=== PATIENT | male | born 1990 | race Two or more races ===

== ENCOUNTER 2016-12-30 05:52 | Day surgery (SDC) | payer OTHER ==
[2016-12-30] MEDS ORDERED: ONDANSETRON 4 MG/2ML 2 ML VIAL ONE (06:12)
[2016-12-30] MEDS ORDERED: KETOROLAC TROMETHAMINE 30 MG/ML 1 ML VIAL ONE (06:12)
[2016-12-30] MEDS ORDERED: SODIUM CHLORIDE 0.9% 1,000 ML ONE (06:12)
[2016-12-30] MEDS ORDERED: MORPHINE SULFATE 4 MG/ML SYRINGE ONE ×2 (06:12→06:39)
[2016-12-30 06:22] LABS: ABSOLUTE NEUTROPHIL COUNT 7.7 K/mm3 (1.8-7.7); BASO # 0.1 K/mm3 (0.0-0.2); BASO % 0.7 % (0.2-1.0); EOS # 0.2 (0.0-0.5); EOS % 1.2 % (0.9-2.9); HEMATOCRIT 42.8 % (32.0-52.0); HEMOGLOBIN 13.9 gm/l (14.0-18.0); IMM NEUT # 0.1 K/mm3 (0-0.2); IMM NEUT% 0.4 % (0-1); LYMPH # 4.9 (1.0-4.8); LYMPH % 36.1 % (15-45); MEAN CELL VOLUME 82.5 fl (80.0-94.0); MEAN CORPUSCULAR HEMOGLOBIN 26.8 pg (27.0-31.0); MEAN CORPUSCULAR HGB CONC 32.5 g/dl (33.0-37.0); MEAN PLATELET VOLUME 14.4 fl (7.4-10.4); MONO # 0.7 (0.0-0.8); MONO % 5.1 % (4-12); NEUT % 56.5 % (43-75); PLATELET COUNT 168 K/mm3 (130-400); RED CELL DISTRIBUTION WIDTH 13.6 % (11.5-14.5)
[2016-12-30 06:46] LABS: ALB/GLOB RATIO 1.7 (>1.0); ALBUMIN 4.8 gm/dL (3.5-5.7); CALCIUM 9.9 mg/dL (8.6-10.3)
[2016-12-30] MEDS ORDERED: CEFAZOLIN SODIUM 1 GM IV ONE (07:35)
--- NOTE | 2016-12-30 07:41 | US ---
SCROTUM CONTENTS HISTORY: Severe right testicular pain. COMPARISONS: None. FINDINGS: Ultrasonography of both testicles demonstrates symmetric testicular size. The right testicle measures 5.0 x 3.2 x 3.2 cm. The left testicle measures 4.9 x 2.3 x 2.7 cm. There is no identifiable flow identified within the visualized right testicle or the right epididymis. Normal flow is seen throughout the majority of the left testicle. No masses are visualized. There is a small right-sided hydrocele incidentally seen. IMPRESSION: 1. No significant flow identified within the right testicle and epididymis consistent with a right testicular torsion. 2. A small right-sided hydrocele. The findings were discussed with Dr. Hussein at 0720 hours.
[2016-12-30] MEDS ORDERED: BUPIVACAINE 0.5% (PRES FREE) 30 ML VIAL ONE (07:46)
[2016-12-30] MEDS ORDERED: BACITRACIN 1 APPLIC/500 UNIT PACKET TP ONE (07:46)
[2016-12-30] MEDS ORDERED: NEOMY SULF/POLYMYXIN B SULFATE 1 ML AMP IR ONE (07:48)
[2016-12-30] MEDS ORDERED: LACTATED RINGERS 1,000 ML ONE (08:14)
[2016-12-30] MEDS ORDERED: SPINAL PROCEDURAL TRAY 1 EACH ONE (08:21)
[2016-12-30] MEDS ORDERED: BUPIVACAINE 0.75% SPINAL AMPUL 2 ML ONE (08:21)
[2016-12-30] MEDS ORDERED: PROPOFOL 40 ML IV ONE (08:21)
[2016-12-30] MEDS ORDERED: KETAMINE HCL UD SYRINGE 100 MG/2 ML IV ONE (08:22)
[2016-12-30] MEDS ORDERED: MIDAZOLAM HCL 5 MG/5 ML VIAL ONE (08:22)
[2016-12-30] MEDS ORDERED: DEXAMETHASONE SOD PHOS 4 MG/1 ML VIAL ONE (08:52)
[2016-12-30] MEDS ORDERED: HYDROMORPHONE HCL 1 MG/ML SYRINGE IV PRN (09:08)
[2016-12-30] MEDS ORDERED: FENTANYL 100 MCG/2 ML VIAL IV PRN (09:08)
[2016-12-30] MEDS ORDERED: ATROPINE SULFATE 0.4 MG/1 ML VIAL IV PRN (09:08)
[2016-12-30] MEDS ORDERED: NALOXONE HCL 0.4 MG/ML VIAL IV PRN (09:08)
[2016-12-30] MEDS ORDERED: PROMETHAZINE HCL 25 MG/ML VIAL IM PRN (09:08)
[2016-12-30] MEDS ORDERED: ONDANSETRON 4 MG/2ML 2 ML VIAL IV PRN ×2 (09:08→10:02)
[2016-12-30] MEDS ORDERED: LACTATED RINGERS 1,000 ML IV SCH (09:15)
[2016-12-30] MEDS ORDERED: HYDROCODONE/ACETAMINOPHEN 5/325MG TABLET PO PRN (10:02)
[2016-12-30] MEDS ORDERED: MORPHINE SULFATE 2 MG/ML SYRINGE IV PRN (10:02)
[2016-12-30] MEDS ORDERED: MORPHINE SULFATE 4 MG/ML SYRINGE IV PRN (10:13)
--- NOTE | 2016-12-30 10:13 | OP ---
Chaz Mar [id number] DATE OF SURGERY: 12/30/2016 SURGEON: Alfonso Solomon M.D. [employer]: [place] nurse. ANESTHESIA: Spinal. PREOPERATIVE DIAGNOSIS: Acute right testicular torsion. POSTOPERATIVE DIAGNOSIS: Acute right testicular torsion. PROCEDURE: Right side detorsion of testicle, right orchiopexy. SPECIMENS: None. INDICATIONS: The patient is a 26-year-old man who noticed the onset of right sided intrascrotal and low abdominal pain at approximately 12:00 to 1:00 a.m. this morning. He was waking up on and off and by 4:00 a.m. was having severe pain and noted that his right testis was swollen and pulled up into the groin. He presented to the emergency room and studies indicated testicular torsion. 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 The testis was mildly enlarged and purple in color. There was mild to moderate edema of the epididymis. Some subadventitial hemorrhage along the junction between the epididymis and the testis. After detorsion, the color returned to the testis and we had a arterial signal entering the cord into the testicular structures themselves. Orchiopexy was completed laterally and medially. PROCEDURE: Patient identified and brought to the operating room where spinal anesthetic was applied and he laid supine on the table. The genital region was prepared and draped sterilely. Half percent Marcaine was used to the anesthetized the anterior raphe of the scrotum and we made the vertical incision approximately 4 to 5 cm in length. We dissected through the ductus layer and delivered the right intrascrotal contents into the wound. There was a mild reactive hydrocele present. The tunica vaginalis was opened and hydrocele fluid drained. The testicle itself was delivered in the wound and detorsed. Almost immediately, color starting returning to the testis itself. We used a Doppler device to check arterial flow along the cord entering the testicle. Seeing that the color reversal was being maintained, we everted the flaps of the tunica vaginalis posteriorly and sutured them in place behind the cord with running 3-0 Vicryl suture. Next, the testis was returned to the right hemiscrotum in its normal orientation and the tunica albuginea pex to the medial and lateral aspects of the scrotal wall with 3-0 Silk suture. The color remained good and we could still get an arterial signal by passing a Doppler probe deep behind the testicle. We irrigated with irrigant. The ductus layer was closed with a running 3-0 Vicryl suture. The skin was closed with interrupted vertical mattress sutures of 4-0 Chromic. Antibiotic ointment and Xeroform gauze was applied to the suture line followed by fluffs dressings and scrotal support. Estimated blood loss less than 10 mL. Sponge and needle counts were correct. No early complications. JOB: [id number]
== END 2016-12-30 15:00 | disposition home or self-care (01) ==
LOC: ED 05:52 → SDC 07:33
PROVIDERS: ATTEND Urology
PROC: 0VN Male Reproductive System, Release (ICD-10-PCS; principal; 2016-12-30)
DX: N44.00 Torsion of testis, unspecified (principal); N43.3 Hydrocele, unspecified